=== PATIENT | male | born 1980 ===

== ENCOUNTER 2016-08-28 18:03 | Observation (INO) | payer OTHER ==
[2016-08-28] MEDS ORDERED: Sodium Chloride 0.9% 1,000 ML IV ONE ×3 (19:05→21:21)
--- NOTE | 2016-08-28 19:08 | C.PDOC ---
History Of Present Illness 36 y/o male, with no significant past medical history, presents to emergency department with a complaint of shaking chills, and generalized body aches that started at 4:30 today. Denies cough, sore throat, chest pain, nausea, vomiting, or diarrhea. Patient tachypneic and mildly short of breath on arrival. Time Seen by Provider: 08/28/16 18:58 Chief Complaint (Nursing): Flu-like Symptoms History Per: Patient History/Exam Limitations: no limitations Onset/Duration Of Symptoms: Hrs Current Symptoms Are (Timing): Still Present Location Of Pain: Diffuse Myalgias Sick Contacts (Context): None Associated Symptoms: Chills, Myalgias. denies: Sore Throat, Cough, Neck Pain, Vomiting, Diarrhea Ear Symptoms: Bilateral: None Recent travel outside of the [place]: No Past Medical History Reviewed: Historical Data, Nursing Documentation, Vital Signs Vital Signs: Last Vital Signs Temp 97.9 F 08/28/16 21:53 Pulse 129 H 08/28/16 21:53 Resp 11 L 08/28/16 21:53 BP 121/67 08/28/16 21:53 Pulse Ox 100 08/28/16 22:31 - Medical History PMH: No Chronic Diseases Family History: States: Unknown Family Hx - Social History Hx Tobacco Use: No Hx Alcohol Use: No Hx Substance Use: No - Immunization History Hx Tetanus Toxoid Vaccination: No Hx Influenza Vaccination: No Hx Pneumococcal Vaccination: No Review Of Systems Except As Marked, All Systems Reviewed And Found Negative. Constitutional: Positive for: Fever, Chills, Malaise ENT: Negative for: Throat Pain Cardiovascular: Negative for: Chest Pain Respiratory: Negative for: Cough, Shortness of Breath, Wheezing Gastrointestinal: Negative for: Nausea, Vomiting, Abdominal Pain Skin: Negative for: Rash Physical Exam - Physical Exam Appears: Non-toxic, In Acute Distress, Other (tachypneic) Skin: Warm, Dry Head: Atraumatic, Normacephalic Eye(s): bilateral: Normal Inspection, PERRL, EOMI Ear(s): Bilateral: Normal Nose: Normal Oral Mucosa: Moist Throat: Normal, No Erythema, No Exudate, No Drooling Neck: Normal ROM, Supple Lymphatic: No Adenopathy Chest: Symmetrical Cardiovascular: Rhythm Regular (tachycardic) Respiratory: Normal Breath Sounds, No Accessory Muscle Use, No Rales, No Rhonchi , No Wheezing Gastrointestinal/Abdominal: Soft, No Tenderness, No Guarding, No Rebound, Other (vague abdominal discomfort) Back: Normal Inspection Extremity: Normal ROM, Capillary Refill (< 2 sec. ) Neurological/Psych: Oriented x3, Normal Speech, Normal Cognition ED Course And Treatment - Laboratory Results Result Diagrams: 08/28/16 19:24 08/28/16 19:24 Lab Interpretation: No Acute Changes (WBC 9.2 with 90 segs, labs otherwise normal, Flu negative) ECG: Interpreted By Ne ECG Rhythm: Sinus Tachycardia ECG Interpretation: Abnormal O2 Sat by Pulse Oximetry: 100 (RA) Pulse Ox Interpretation: Normal - Radiology CXR: Interpreted by Ne CXR Interpretation: Yes: No Acute Disease Reevaluation Time: 22:29 Reassessment Condition: Improved (Patient now afebrile and asymptomatic except for mild persistent tachycardia. Additional fluids ordered.) - Physician Consult Information Time Consulting Physician Contacted: 23:40 Physician Contacted: Ramakrishna Carpio Jr. Disposition - Disposition Referrals: Ramakrishna Carpio Jr., MD [Medical Doctor] - Disposition: HOME/ ROUTINE Condition: IMPROVED Additional Instructions: Take Ibuprophen or Tylenol every 4-6 hours for fever and pain if needed. Instructions: Fever in Adults (ED) - Clinical Impression Clinical Impression: Influenza-like illness, Febrile illness, acute - Scribe Statement The provider has reviewed the documentation as recorded by the Armandibvelia Perez All medical record entries made by the Armandibvelia were at my direction and personally dictated by me. I have reviewed the chart and agree that the record accurately reflects my personal performance of the history, physical exam, medical decision making, and the department course for this patient. I have also personally directed, reviewed, and agree with the discharge instructions and disposition.
[2016-08-28 19:29] LABS: BASO # 0.1 K/uL (0.0-0.2); BASO % 0.6 % (0.0-2.0); EOS % 0.3 % (0.0-4.0); HEMATOCRIT 44.2 % (35.0-51.0); LYMPH # 0.7 K/uL (1.0-4.3); LYMPH % 7.1 % (20.0-40.0); MEAN CELL VOLUME 90.7 fL (80.0-94.0); MEAN CORPUSCULAR HEMOGLOBIN 29.8 pg (27.0-31.0); MEAN CORPUSCULAR HGB CONC 32.8 g/dL (33.0-37.0); MEAN PLATELET VOLUME 8.6 fL (7.2-11.7); MONO % 0.5 % (0.0-10.0); NRBC % 0.1 % (0.0-2.0); PLATELET COUNT 205 K/uL (130-400); RED CELL DISTRIBUTION WIDTH 14.2 % (11.5-14.5); WHITE BLOOD COUNT 9.9 K/uL (4.8-10.8)
[2016-08-28 19:35] LABS: CHLORIDE 101 mmol/L (98-107); POTASSIUM 3.8 mmol/L (3.6-5.2); SODIUM 137 mmol/L (132-148)
[2016-08-28 19:37] LABS: BILIRUBIN,TOTAL 1.1 mg/dL (0.2-1.3); CARBON DIOXIDE 25 mmol/L (22-30); GFR AFRICAN-AMERICAN > 60
[2016-08-28 19:38] LABS: ALKALINE PHOSPHATASE 96 U/L (38-126); ALT/SGPT 62 U/L (21-72); AST/SGOT 52 U/L (17-59); BLOOD UREA NITROGEN 13 mg/dL (9-20); CALCIUM 7.7 mg/dl (8.6-10.4); GLUCOSE,RANDOM 95 mg/dL (75-110); TOTAL PROTEIN 7.2 g/dL (6.3-8.3)
[2016-08-28 19:42] LABS: RBC URINE < 1 /hpf (0-3); URINE BACTERIA RARE (<OCC); URINE BILIRUBIN NEGATIVE (NEGATIVE); URINE BLOOD NEGATIVE (NEGATIVE); URINE COLOR Yellow (YELLOW); URINE GLUCOSE (UA) NORMAL (Normal); URINE HYALINE CAST 0-2 /lpf (0-2); URINE KETONE NEGATIVE (NEGATIVE); URINE LEUKOCYTE ESTERASE NEG Leu/uL (Negative); URINE PROTEIN 2+ mg/dL (NEGATIVE); WBC URINE 2 /hpf (0-5)
[2016-08-28 20:33] LABS: EOSINOPHIL 1 % (0-4); NEUTROPHIL 86 % (50-75); TOTAL CELLS COUNTED 100
--- NOTE | 2016-08-29 08:19 | RAD ---
HISTORY: SOB COMPARISON: No prior. TECHNIQUE: Chest PA and lateral FINDINGS: LUNGS: No active pulmonary disease. PLEURA: No significant pleural effusion identified. No pneumothorax apparent. CARDIOVASCULAR: Normal. OSSEOUS STRUCTURES: No significant abnormalities. VISUALIZED UPPER ABDOMEN: Normal. OTHER FINDINGS: Shallow lung volumes. Large body habitus IMPRESSION: No active disease.
[2016-08-29] MEDS ORDERED: Enoxaparin 40 mg Syringe ONE (12:20)
[2016-08-29] MEDS: Sodium Chloride 0.9% 1,000 ML IV SCH (21:45)
[2016-08-30] MEDS: Sodium Chloride 0.9% 1,000 ML IV SCH ×5 (03:30→22:21)
--- NOTE | 2016-08-30 07:22 | CP.PCM.HP ---
History of Present Illness - History of Present Illness History of Present Illness: 36 M with no significant PMH presents to [facility] ED for complaint of fever/chills and palpitations. Patient states that his symptoms began around 5pm today while at work. Patient had never had these symptoms, which prompted him to be seen. Patient denies any recent illness or sick contacts. Patient currently denies any pain. Patient stated that ibuprofen alleviates his symptoms while nothing exacerbates them. Admits to body aches, palpitations, nausea, and SOB. Denies cp, abdominal pain, vomiting, diarrhea, constipation, dizziness/lightheadedness, vertigo, incontinence, numbness/tingling. PMD: Carpio PMH: Denies Meds: Denies Allergy: NKDA PSH: Denies Hosp: Denies FH: Liver disease and Colon CA Social: works as chemistry professor, denies tobacco and illicit drug use, drinks 4-5 drinks on weekends occasionally Present on Admission - Present on Admission Any Indicators Present on Admission: No History of DVT/PE: No History of Uncontrolled Diabetes: No Urinary Catheter: No Decubitus Ulcer Present: No Review of Systems - Review of Systems All systems: reviewed and no additional remarkable complaints except (as per HPI ) - Constitutional Constitutional: As Per HPI Past Patient History - Infectious Disease Hx of Infectious Diseases: None - Past Medical History & Family History Past Medical History?: No - Past Social History Smoking Status: Current Some Days Smoker - MUSCULOSKELETAL/RHEUMATOLOGICAL Hx Falls: No - PSYCHIATRIC Hx Substance Use: No - SURGICAL HISTORY Hx Surgeries: No - ANESTHESIA Hx Anesthesia: No Meds Allergies/Adverse Reactions: Allergies Allergy/AdvReac Type Severity Reaction Status Date / Time No Known Allergies Allergy Unverified 07/28/13 23:52 Physical Exam - Constitutional Appears: No Acute Distress - Head Exam Head Exam: ATRAUMATIC, NORMOCEPHALIC - Eye Exam Eye Exam: EOMI, Normal appearance Pupil Exam: PERRL - ENT Exam ENT Exam: Mucous Membranes Moist - Neck Exam Neck exam: Positive for: Normal Inspection - Respiratory Exam Respiratory Exam: Clear to Auscultation Bilateral, NORMAL BREATHING PATTERN - Cardiovascular Exam Cardiovascular Exam: Tachycardia, REGULAR RHYTHM, +S1, +S2 - GI/Abdominal Exam GI & Abdominal Exam: Normal Bowel Sounds, Soft. absent: Tenderness - Extremities Exam Extremities exam: Positive for: normal capillary refill, pedal pulses present. Negative for: calf tenderness - Back Exam Back exam: absent: CVA tenderness (L), CVA tenderness (R) - Neurological Exam Neurological exam: Alert, CN II-XII Intact, Oriented x3 - Psychiatric Exam Psychiatric exam: Normal Affect, Normal Mood - Skin Skin Exam: Dry, Intact, Normal Color, Warm Results - Vital Signs Recent Vital Signs: Last Vital Signs Temp 98.5 F 08/29/16 23:29 Pulse 109 H 08/29/16 23:29 Resp 20 08/29/16 23:29 BP 114/74 08/29/16 23:29 Pulse Ox 96 08/29/16 23:29 - Labs Result Diagrams: 08/28/16 19:24 08/28/16 19:24 Labs: Laboratory Results - last 24 hr 08/29/16 08/29/16 16:18 Unknown HIV 1&2 Antibody Screen Negative Influenza Typ A,B (EIA) Negative for flu a/b Assessment & Plan - Assessment and Plan (Free Text) Plan: 1. Fever/Chills Tylenol 650 mg PO Q6H PRN Motrin 800 mg PO Q6H PRN NS 100 cc/hr Tamiflu 75 mg PO BID Influenza A B negative Mycoplasma Strep pneumoniae 2. Prophylactic Measure Protonix 40 mg PO daily SCDs Lovenox 40 mg SC daily
[2016-08-30 08:33] LABS: BASO % 0.5 % (0.0-2.0); EOS # 0.1 K/uL (0.0-0.7); EOS % 1.4 % (0.0-4.0); HEMATOCRIT 39.7 % (35.0-51.0); LYMPH # 1.4 K/uL (1.0-4.3); LYMPH % 17.8 % (20.0-40.0); MEAN CELL VOLUME 90.3 fL (80.0-94.0); MEAN CORPUSCULAR HEMOGLOBIN 29.7 pg (27.0-31.0); MEAN CORPUSCULAR HGB CONC 32.9 g/dL (33.0-37.0); MEAN PLATELET VOLUME 9.1 fL (7.2-11.7); MONO # 0.7 K/uL (0.0-0.8); MONO % 8.8 % (0.0-10.0); RED CELL DISTRIBUTION WIDTH 14.1 % (11.5-14.5); WHITE BLOOD COUNT 7.9 K/uL (4.8-10.8)
[2016-08-30 09:19] LABS: CHLORIDE 103 mmol/L (98-107)
[2016-08-30 09:20] LABS: POTASSIUM 3.6 mmol/L (3.6-5.2); SODIUM 133 mmol/L (132-148)
[2016-08-30 09:22] LABS: ALB/GLOB RATIO 0.8 (1.0-2.1); ALKALINE PHOSPHATASE 84 U/L (38-126); ALT/SGPT 111 U/L (21-72); AST/SGOT 69 U/L (17-59); BILIRUBIN,TOTAL 0.8 mg/dL (0.2-1.3); BLOOD UREA NITROGEN 4 mg/dL (9-20); CARBON DIOXIDE 22 mmol/L (22-30); GFR AFRICAN-AMERICAN > 60; TOTAL PROTEIN 6.6 g/dL (6.3-8.3)
[2016-08-30 09:23] LABS: CALCIUM 7.6 mg/dl (8.6-10.4); GLUCOSE,RANDOM 128 mg/dL (75-110); MAGNESIUM 1.8 mg/dL (1.6-2.3)
[2016-08-30] MEDS: Enoxaparin 40 mg Syringe SC SCH (10:15)
--- NOTE | 2016-08-30 15:54 | VASCLAB ---
PROCEDURE: Lower Extremity Venous Duplex Exam. HISTORY: DVT PRIORS: None. TECHNIQUE: Bilateral common femoral, femoral, popliteal and posterior tibial, peroneal and great saphenous veins were evaluated. Flow was assessed with color Doppler, compressibility, assessment of phasic flow and augmentation response. Report prepared by ADRIEN Marcum, RVT FINDINGS: RIGHT: 1. Common Femoral Vein: 1.1. Compressibility - Fully compressible: Thrombus - None : Flow - Phasic: Augmentation -Normal: Reflux - None. 2. Femoral Vein: 2.1. Compressibility - Fully compressible: Thrombus - None : Flow - Phasic: Augmentation -Normal: Reflux - None. 3. Popliteal Vein: 3.1. Compressibility - Fully compressible: Thrombus - None : Flow - Phasic: Augmentation -Normal: Reflux - None. 4. Posterior Tibial Vein: 4.1. Compressibility - Fully compressible: Thrombus - None: Flow - Phasic: Augmentation -Normal: Reflux - None. 5. Peroneal Vein: 5.1. Compressibility - Fully compressible: Thrombus - None: Flow - Phasic: Augmentation -Normal: Reflux - None. 6. Great Saphenous Vein: 6.1. Compressibility - Fully compressible: Thrombus - None: Flow - Phasic: Augmentation - Normal: Reflux - None. LEFT: 1. Common Femoral Vein: 1.1. Compressibility - Fully compressible: Thrombus - None: Flow - Phasic: Augmentation -Normal: Reflux - None. 2. Femoral Vein: 2.1. Compressibility - Fully compressible: Thrombus - None: Flow - Phasic: Augmentation -Normal: Reflux - None. 3. Popliteal Vein: 3.1. Compressibility - Fully compressible: Thrombus - None : Flow - Phasic: Augmentation -Normal: Reflux - None. 4. Posterior Tibial Vein: 4.1. Compressibility - Fully compressible: Thrombus - None: Flow - Phasic: Augmentation -Normal: Reflux - None. 5. Peroneal Vein: 5.1. Compressibility - Fully compressible: Thrombus - None: Flow - Phasic: Augmentation -Normal: Reflux - None. 6. Great Saphenous Vein: 6.1. Compressibility - Fully compressible: Thrombus - None: Flow - Phasic: Augmentation - Normal: Reflux - None. OTHER FINDINGS: Right: None significant. Left: None significant. IMPRESSION: Right: No evidence of deep or superficial vein thrombosis of the right lower extremity. Normal valve function noted of the right side. Left: No evidence of deep or superficial vein thrombosis of the left lower extremity. Normal valve function noted of the left side.
--- NOTE | 2016-08-30 16:22 | CP.PCM.PN ---
<Mar Henriquez - Last Filed: 08/30/16 16:34> Subjective - Date & Time of Evaluation Date of Evaluation: 08/30/16 Time of Evaluation: 07:30 - Subjective Subjective: PGY1 Medicine note for Dr. Carpio Pt seen and examined at bedside. Nursing reports no adverse events overnight. Today patient is comfortable and energized. Pt reports he is feeling much better. He states he has not felt feverish and that he is having no trouble breathing. He has no acute complaints at this time. Pt denies fever, chills, dizziness, headache, chest pain, palpitations, shortness of breath, cough, nausea, vomiting, abdominal pain, bowel/bladder pain, swelling/pain in legs. Objective - Vital Signs/Intake and Output Vital Signs (last 24 hours): Temp Pulse Resp BP Pulse Ox 98.6 F 102 H 20 121/85 98 08/30/16 08:12 08/30/16 08:12 08/30/16 08:12 08/30/16 08:12 08/30/16 08:12 Intake and Output: 08/30/16 08/30/16 06:59 18:59 Intake Total 2059 1879 Balance 2059 1879 - Medications Medications: Current Medications Enoxaparin Sodium (Lovenox) 40 mg SC DAILY [facility] Last Admin: 08/30/16 10:15 Dose: 40 mg Sodium Chloride (Sodium Chloride 0.9%) 1,000 mls @ 175 mls/hr IV .Q5H43M [facility] Last Admin: 08/30/16 14:56 Dose: Not Given Pneumococcal Polyvalent Vaccine (Pneumovax 23 Vaccine) 0.5 ml IM .ONCE ONE Stop: 08/31/16 10:01 - Labs Labs: 08/30/16 08:18 08/30/16 08:18 - Constitutional Appears: Non-toxic, No Acute Distress, Other (obese) - Head Exam Head Exam: NORMAL INSPECTION - Eye Exam Eye Exam: Normal appearance. absent: Conjunctival injection, Scleral icterus - ENT Exam ENT Exam: Mucous Membranes Moist - Neck Exam Neck Exam: Normal Inspection. absent: Lymphadenopathy, Tenderness - Respiratory Exam Respiratory Exam: Decreased Breath Sounds (likely secondary to body habitus), Clear to Ausculation Bilateral, NORMAL BREATHING PATTERN. absent: Rales, Rhonchi, Wheezes - Cardiovascular Exam Cardiovascular Exam: REGULAR RHYTHM, RRR, +S1, +S2. absent: Murmur - GI/Abdominal Exam GI & Abdominal Exam: Soft, Normal Bowel Sounds. absent: Firm, Guarding, Rigid, Tenderness - Extremities Exam Extremities Exam: Normal Capillary Refill, Normal Inspection. absent: Pedal Edema, Tenderness - Back Exam Back Exam: NORMAL INSPECTION. absent: rash noted, tenderness - Neurological Exam Neurological Exam: Alert, Awake, Normal Gait, Oriented x3 - Psychiatric Exam Psychiatric exam: Normal Affect, Normal Mood - Skin Skin Exam: Dry, Intact, Normal Color, Warm Assessment and Plan - Assessment and Plan (Free Text) Assessment: 36 M with no significant PMH presents to [facility] ED for complaint of fever/chills and palpitations Plan: Fever/Chills No temp overnight Blood culture + gram negative rods prelim x 1 Urine culture negative Vancomycin 1gm IVPB Q24 Zosyn 3.375gm IVPB Q8H Tylenol 650 mg PO Q6H PRN fever NS 175 cc/hr Tamiflu 75 mg PO BID Influenza A B negative Prophylactic Measure Protonix 40 mg PO daily SCDs Lovenox 40 mg SC daily LE venous dopplers negative b/l Heart healthy diet Plan discussed with Dr. Shirin Henriquez PGY1 <Ramakrishna Carpio Jr. - Last Filed: 08/31/16 09:41> Objective - Vital Signs/Intake and Output Vital Signs (last 24 hours): Temp Pulse Resp BP Pulse Ox 98.0 F 100 H 20 115/77 96 08/31/16 08:09 08/31/16 08:09 08/31/16 08:09 08/31/16 08:09 08/31/16 08:09 Intake and Output: 08/31/16 08/31/16 06:59 18:59 Intake Total 3440 Balance 3440 - Medications Medications: Current Medications Acetaminophen (Tylenol 325mg Tab) 650 mg PO Q6 PRN PRN Reason: Fever >100.4 F Last Admin: 08/31/16 08:51 Dose: 650 mg Enoxaparin Sodium (Lovenox) 40 mg SC DAILY [facility] Last Admin: 08/31/16 08:51 Dose: 40 mg Sodium Chloride (Sodium Chloride 0.9%) 1,000 mls @ 175 mls/hr IV .Q5H43M [facility] Last Admin: 08/31/16 07:59 Dose: Not Given Piperacillin Sod/Tazobactam Sod (Zosyn 3.375 Gm Iv Premix) 3.375 gm in 50 mls @ 100 mls/hr IVPB Q6H [facility] Last Admin: 08/31/16 05:46 Dose: 100 mls/hr Vancomycin HCl 1 gm/ Sodium (Chloride) 250 mls @ 166.7 mls/hr IVPB Q24H [facility] Last Admin: 08/30/16 18:53 Dose: 166.7 mls/hr Pneumococcal Polyvalent Vaccine (Pneumovax 23 Vaccine) 0.5 ml IM .ONCE ONE Stop: 08/31/16 10:01 Saccharomyces Boulardii (Florastor) 250 mg PO TID [facility] Last Admin: 08/31/16 08:50 Dose: 250 mg - Labs Labs: 08/31/16 07:20 08/31/16 07:20 Attending/Attestation - Attestation I have personally seen and examined this patient.: Yes I have fully participated in the care of the patient.: Yes I have reviewed all pertinent clinical information, including history, physical exam and plan: Yes Notes (Text): 08/31/16 09:40 Agree with resident note findings and plan of care
[2016-08-30] MEDS: Saccharomyces Boulardi 250 mg Cap PO SCH (17:25)
[2016-08-30] MEDS: Piperacill/Tazo 3.375gm in Dex 3.375 GM/50 ML BAG IVPB SCH (17:25)
[2016-08-30 23:54] VITALS: RESP 20
[2016-08-31] MEDS: Piperacill/Tazo 3.375gm in Dex 3.375 GM/50 ML BAG IVPB SCH ×3 (00:34→13:09)
[2016-08-31] MEDS: Sodium Chloride 0.9% 1,000 ML IV SCH ×3 (00:40→13:10)
[2016-08-31 07:44] LABS: BASO % 0.6 % (0.0-2.0); EOS # 0.2 K/uL (0.0-0.7); EOS % 2.8 % (0.0-4.0); LYMPH # 1.6 K/uL (1.0-4.3); LYMPH % 28.2 % (20.0-40.0); MEAN CELL VOLUME 89.6 fL (80.0-94.0); MEAN CORPUSCULAR HEMOGLOBIN 30.3 pg (27.0-31.0); MEAN CORPUSCULAR HGB CONC 33.8 g/dL (33.0-37.0); MEAN PLATELET VOLUME 9.2 fL (7.2-11.7); MONO # 0.6 K/uL (0.0-0.8); MONO % 11.2 % (0.0-10.0); NRBC % 0.1 % (0.0-2.0); RED CELL DISTRIBUTION WIDTH 14.3 % (11.5-14.5); WHITE BLOOD COUNT 5.7 K/uL (4.8-10.8)
[2016-08-31 08:10] VITALS: BP 115/77; PULSE 100; TEMP 98; O2SAT 96
[2016-08-31 08:18] LABS: CHLORIDE 101 mmol/L (98-107); POTASSIUM 3.8 mmol/L (3.6-5.2); SODIUM 135 mmol/L (132-148)
[2016-08-31 08:20] LABS: BILIRUBIN,TOTAL 0.9 mg/dL (0.2-1.3); GFR AFRICAN-AMERICAN > 60
[2016-08-31 08:21] LABS: ALB/GLOB RATIO 0.8 (1.0-2.1); ALKALINE PHOSPHATASE 92 U/L (38-126); ALT/SGPT 135 U/L (21-72); AST/SGOT 95 U/L (17-59); BLOOD UREA NITROGEN 5 mg/dL (9-20); CARBON DIOXIDE 25 mmol/L (22-30); GLUCOSE,RANDOM 104 mg/dL (75-110); PHOSPHOROUS 4.4 mg/dL (2.5-4.5); TOTAL PROTEIN 6.9 g/dL (6.3-8.3)
[2016-08-31 08:22] LABS: MAGNESIUM 1.9 mg/dL (1.6-2.3)
[2016-08-31] MEDS: Saccharomyces Boulardi 250 mg Cap PO SCH ×3 (08:50→13:12)
[2016-08-31] MEDS: Enoxaparin 40 mg Syringe SC SCH ×2 (08:51→09:51)
[2016-08-31] MEDS ORDERED: Pneumococcal 23-Valent Vaccine IM ONE (10:00)
--- NOTE | 2016-08-31 17:05 | CP.PCM.DIS ---
Provider - Provider Date of Admission: 08/29/16 00:27 Attending physician: Ramakrishna Carpio Jr, MD Primary care physician: Dr. Carpio Time Spent in preparation of Discharge (in minutes): 40 Hospital Course - Lab Results Lab Results: Most Recent Lab Values WBC 5.7 K/uL (4.8-10.8) 08/31/16 07:20 RBC 4.46 Mil/uL (4.40-5.90) 08/31/16 07:20 Hgb 13.5 g/dL (12.0-18.0) 08/31/16 07:20 Hct 40.0 % (35.0-51.0) 08/31/16 07:20 MCV 89.6 fL (80.0-94.0) 08/31/16 07:20 MCH 30.3 pg (27.0-31.0) 08/31/16 07:20 MCHC 33.8 g/dL (33.0-37.0) 08/31/16 07:20 RDW 14.3 % (11.5-14.5) 08/31/16 07:20 Plt Count 162 K/uL (130-400) 08/31/16 07:20 MPV 9.2 fL (7.2-11.7) 08/31/16 07:20 Neut % (Auto) 57.2 % (50.0-75.0) 08/31/16 07:20 Lymph % (Auto) 28.2 % (20.0-40.0) 08/31/16 07:20 [place] % (Auto) 11.2 % (0.0-10.0) H 08/31/16 07:20 Eos % (Auto) 2.8 % (0.0-4.0) 08/31/16 07:20 Baso % (Auto) 0.6 % (0.0-2.0) 08/31/16 07:20 Neut # 3.3 K/uL (1.8-7.0) 08/31/16 07:20 Lymph # 1.6 K/uL (1.0-4.3) 08/31/16 07:20 [place] # 0.6 K/uL (0.0-0.8) 08/31/16 07:20 Eos # 0.2 K/uL (0.0-0.7) 08/31/16 07:20 Baso # 0.0 K/uL (0.0-0.2) 08/31/16 07:20 Neutrophils % (Manual) 86 % (50-75) H 08/28/16 19:24 Band Neutrophils % 3 % (0-2) H 08/28/16 19:24 Lymphocytes % (Manual) 9 % (20-40) L 08/28/16 19:24 Monocytes % (Manual) 1 % (0-10) 08/28/16 19:24 Eosinophils % (Manual) 1 % (0-4) 08/28/16 19:24 Platelet Estimate Normal (NORMAL) 08/28/16 19:24 Sodium 135 mmol/L (132-148) 08/31/16 07:20 Potassium 3.8 mmol/L (3.6-5.2) 08/31/16 07:20 Chloride 101 mmol/L (98-107) 08/31/16 07:20 Carbon Dioxide 25 mmol/L (22-30) 08/31/16 07:20 Anion Gap 13 (10-20) 08/31/16 07:20 BUN 5 mg/dL (9-20) L 08/31/16 07:20 Creatinine 0.7 MG/DL (0.8-1.5) L 08/31/16 07:20 Est GFR ( Amer) > 60 08/31/16 07:20 Est GFR (Non-Af Amer) > 60 08/31/16 07:20 Random Glucose 104 mg/dL (75-110) 08/31/16 07:20 Calcium 8.0 mg/dl (8.6-10.4) L 08/31/16 07:20 Phosphorus 4.4 mg/dL (2.5-4.5) 08/31/16 07:20 Magnesium 1.9 mg/dL (1.6-2.3) 08/31/16 07:20 Total Bilirubin 0.9 mg/dL (0.2-1.3) 08/31/16 07:20 AST 95 U/L (17-59) H D 08/31/16 07:20 ALT 135 U/L (21-72) H D 08/31/16 07:20 Alkaline Phosphatase 92 U/L (38-126) 08/31/16 07:20 Total Protein 6.9 g/dL (6.3-8.3) 08/31/16 07:20 Albumin 3.1 g/dL (3.5-5.0) L 08/31/16 07:20 Globulin 3.8 gm/dL (2.2-3.9) 08/31/16 07:20 Albumin/Globulin Ratio 0.8 (1.0-2.1) L 08/31/16 07:20 Urine Color Yellow (YELLOW) 08/28/16 19:24 Urine Clarity Hazy (Clear) 08/28/16 19:24 Urine pH 5.0 (5.0-8.0) 08/28/16 19:24 Ur Specific [place] 1.015 (1.003-1.030) 08/28/16 19:24 Urine Protein 2+ mg/dL (NEGATIVE) H 08/28/16 19:24 Urine Glucose (UA) Normal mg/dL (Normal) 08/28/16 19:24 Urine Ketones Negative mg/dL (NEGATIVE) 08/28/16 19:24 Urine Blood Negative (NEGATIVE) 08/28/16 19:24 Urine Nitrate Negative (NEGATIVE) 08/28/16 19:24 Urine Bilirubin Negative (NEGATIVE) 08/28/16 19:24 Urine Urobilinogen 2.0 mg/dL (0.2-1.0) 08/28/16 19:24 Ur Leukocyte Esterase Neg [place]/uL (Negative) 08/28/16 19:24 Urine WBC (Auto) 2 /hpf (0-5) 08/28/16 19:24 Urine RBC (Auto) < 1 /hpf (0-3) 08/28/16 19:24 Ur Squamous Epith Cells 1 /hpf (0-5) 08/28/16 19:24 Urine Bacteria Rare (<OCC) 08/28/16 19:24 Hyaline Casts 0-2 /lpf (0-2) 08/28/16 19:24 HIV 1&2 Antibody Screen Negative (NEGATIVE) 08/29/16 16:18 Influenza Typ A,B (EIA) Negative for flu a/b (NEGATIVE) 08/29/16 Unknown - Hospital Course Hospital Course: 36 M with no significant PMH presents to [facility] ED for complaint of fever/chills and palpitations. Patient states that his symptoms began around 5pm today while at work. Patient had never had these symptoms, which prompted him to be seen. Patient denies any recent illness or sick contacts. Patient currently denies any pain. Patient stated that ibuprofen alleviates his symptoms while nothing exacerbates them. Admits to body aches, palpitations, nausea, and SOB. Denies cp, abdominal pain, vomiting, diarrhea, constipation, dizziness/lightheadedness, vertigo, incontinence, numbness/tingling. Pt was placed on droplet precautions and discontinued after flu came back negative. Tmax 104.7 in ED. Zosyn and Vancomycin started. Pt was afebrile for 2 days. Only one set of total two bottles of culture came back showed gram negative rods. Urine culture was negative. WBC WNL. Pt discharged with 10 days of Augmentin PO 875/125mg BID and Flagyl 500mg PO q6H and instructed to follow up with Dr. Carpio within 1-2 weeks. Discharge Exam - Head Exam Head Exam: NORMAL INSPECTION Discharge Plan - Discharge Medications Prescriptions: Amoxicillin/Clavulanate [Augmentin 875 MG-125 MG Tab] 1 tab PO BID #20 tab metroNIDAZOLE [Flagyl] 500 mg PO Q6H #40 tab Saccharomyces Boulardi [Florastor] 250 mg PO TID #36 cap - Follow Up Plan Condition: IMPROVED Disposition: HOME/ ROUTINE Instructions: Metronidazole (By mouth), Amoxicillin (By mouth), Probiotic (By mouth), Fever in Adults (ED) Additional Instructions: Discharged per Dr. Carpio. Please finish all your prescribed antibiotics for 10 days. Take Ibuprophen or Tylenol every 4-6 hours for fever and pain if needed. Make appointment and follow up with your PMD Dr. Carpio within 1-2 weeks after discharge. Come to ED if symptoms worsen. Referrals: Ramakrishna Carpio Jr., MD [Family Provider] -
--- NOTE | 2016-09-01 15:31 | CARD ---
APPROVED REPORT EKG Measurement Heart [id number] <Conclusion> Sinus tachycardia Possible Right ventricular hypertrophy Possible Lateral infarct, age undetermined Abnormal ECG
== END 2016-08-31 15:45 | disposition home or self-care (01) ==
LOC: C.ER 18:03 → C.3T 08-29 00:27
PROVIDERS: ADMIT Internal Medicine; ATTEND Internal Medicine
DX: R50.9 Fever, unspecified (principal); R00.0 Tachycardia, unspecified; Z68.44 Body mass index [BMI] 60.0-69.9, adult
CPT/HCPCS: 36415; 71020; 80053; 81001; 83735; 84100; 85025; 86703; 86738; 87040; 87086; 87181; 87205; 87804; 93005; 93970; 96360; 99285; G0378; J1650; J2543; J7040; J7050